=== PATIENT | female | born 1990 | race Hispanic/Latino ===

== ENCOUNTER → 2025-06-08 11:00 | Outpatient (REF) | payer OTHER, SELFPAY ==
[2025-06-10 15:06] LABS: Mumps Virus IgG Negative; Varicella Zoster IgG (VZV) Positive
== END ==
LOC: OHS 11:00
PROVIDERS: ATTENDING PHYSICIAN Nurse Practitioner Family
DX: Z23 Encounter for immunization (principal)
CPT/HCPCS: 36415; 86480; 86735; 86762; 86765; 86787